=== PATIENT | male | born 1980 | race Caucasian/White ===

== ENCOUNTER 2023-11-23 12:35 | Observation (INO) ==
[2023-11-23 14:12] LABS: ABS Nucleated RBC 0.01 10^3/ul; Hematocrit 25.6 % (38-53); Hemoglobin 7.7 g/dL (13.2-16.3); Mean Corpuscular Hemoglobin 17.5 pg (27-33); Mean Corpuscular Hgb Conc 30.2 g/dL (31-36); Nucleated Red Blood Cells % 0.1 %/100WBC (0.0-0.8); Red Blood Count 4.41 10^6/uL (4.06-5.63); Red Cell Distribution Width 30.6 % (12-17); White Blood Count 5.6 10^3/uL (3.6-10.2)
[2023-11-23 14:25] LABS: ALT 8 U/L (7-52); AST 13 U/L (13-39); Albumin 3.9 g/dL (3.2-5.2); Albumin/Globulin Ratio 1.5 (1-3); Alkaline Phosphatase 53 U/L (35-149); Anion Gap 6 mmol/L (2-16); Blood Urea Nitrogen 10 mg/dL (6-24); CO2 Carbon Dioxide 26 mmol/L (22-32); Calcium 9.3 mg/dL (8.6-10.3); Chloride 106 mmol/L (101-111); Globulin 2.6 g/dL (2-4); Glucose 89 mg/dL (70-100); Potassium 3.8 mmol/L (3.5-5.0); Sodium 138 mmol/L (135-145); Total Bilirubin 0.7 mg/dL (0.2-1.0); Total Protein 6.5 g/dL (6.4-8.9)
[2023-11-23 15:29] LABS: Alcohol, S < 13 mg/dL (<13)
[2023-11-23 15:40] LABS: Mean Platelet Volume 8.7 fL (7.5-11.2); Platelet Count 234 10^3/uL (150-450)
[2023-11-23 15:41] LABS: Anisocytosis 3+; Hypochromasia 3+; Microcytosis 3+; Spherocytes 1+
[2023-11-23 15:42] LABS: ABS Eosinophils 0.2 10^3/ul (0.0-0.5); ABS Lymphocytes 0.9 10^3/ul (1.0-4.8); ABS Monocytes 0.4 10^3/ul (0.0-1.1); ABS Neutrophils 4.1 10^3/ul (1.5-7.6)
[2023-11-23] MEDS ORDERED: LORazepam 2 mg VIAL 1 ml IV PUSH PRN (15:54)
[2023-11-23] MEDS ORDERED: Lorazepam PYXIS KEY PRN (15:54)
[2023-11-23] MEDS ORDERED: Ondansetron 4 mg VIAL 2 MG/ML 2 ml VIAL IV PRN ×2 (16:01→16:28)
[2023-11-23 17:24] LABS: Magnesium 2.2 mg/dL (1.9-2.7); Phosphorus 3.6 mg/dL (2.5-5.0)
[2023-11-23] MEDS: Pantoprazole VIAL 40 MG VIAL IV SCH ×2 (17:39→18:12)
[2023-11-23 17:43] LABS: Vitamin B12 158 pg/mL (180-914)
[2023-11-23] MEDS: Multivitamins/Minerals TAB PO SCH (18:12)
[2023-11-23] MEDS: PEG 3000 GI LAVAGE 1 GALLON PO ONE (18:12)
[2023-11-24 07:00] LABS: Hematocrit 22.4 % (38-53); Hemoglobin 6.7 g/dL (13.2-16.3); Mean Corpuscular Hemoglobin 17.5 pg (27-33); Mean Corpuscular Hgb Conc 30.1 g/dL (31-36); Platelet Count 205 10^3/uL (150-450); Red Blood Count 3.87 10^6/uL (4.06-5.63); Red Cell Distribution Width 29.8 % (12-17); White Blood Count 4.2 10^3/uL (3.6-10.2)
[2023-11-24 07:05] LABS: Calcium 8.7 mg/dL (8.6-10.3); Creatinine, Serum 0.75 mg/dL (0.67-1.17); Potassium 3.6 mmol/L (3.5-5.0); eGFR CKD-EPI 115.5 (>60)
[2023-11-24 08:21] LABS: ABS Nucleated RBC 0.01 10^3/ul; Acanthocytes 1+; Anisocytosis 2+; Hypochromasia 1+; Microcytosis 2+; Nucleated Red Blood Cells % 0.2 %/100WBC (0.0-0.8); Polychromasia 2+; Target Cells 1+; Tear Drop Cells 1+
[2023-11-24] MEDS ORDERED: Lidocaine 2% PF 5 ML VIAL ONE (14:54)
[2023-11-24] MEDS ORDERED: Ondansetron 4 mg VIAL 2 MG/ML 2 ml VIAL IV PRN (14:57)
[2023-11-24] MEDS ORDERED: Naloxone 0.4 mg VIAL 0.4 mg/ml 1 ml VIAL IV PRN (14:57)
[2023-11-24] MEDS ORDERED: Propofol 10 MG/ML 20 ML BTL ONE (15:31)
[2023-11-24] MEDS: Iron Sucrose 200 MG in NS 0.9% 100 ml BAG 100 ML IVPB SCH (17:18)
[2023-11-24 18:14] LABS: Hematocrit 27.2 % (38-53); Hemoglobin 8.3 g/dL (13.2-16.3)
[2023-11-24 18:56] LABS: Mean Corpuscular Hemoglobin 18.6 pg (27-33); Mean Corpuscular Hgb Conc 30.6 g/dL (31-36); Mean Corpuscular Volume 60.7 fL (80-97); Mean Platelet Volume 8.9 fL (7.5-11.2); Platelet Count 220 10^3/uL (150-450); Red Blood Count 4.48 10^6/uL (4.06-5.63); Red Cell Distribution Width 32.5 % (12-17); White Blood Count 5.2 10^3/uL (3.6-10.2)
[2023-11-24] MEDS ORDERED: LORazepam 2 mg VIAL 1 ml IV PUSH PRN (20:47)
[2023-11-24] MEDS ORDERED: Lorazepam PYXIS KEY PRN (20:47)
[2023-11-24] MEDS: Lactated Ringers 1000 ml BAG 1,000 ML IV ONE (22:40)
[2023-11-25 08:45] LABS: Carcinoembryonic Antigen 1.2 ng/mL (0.1-5.0)
[2023-11-25 09:47] LABS: Hematocrit 25.8 % (38-53); Mean Corpuscular Hemoglobin 18.7 pg (27-33); Mean Corpuscular Hgb Conc 30.9 g/dL (31-36); Mean Corpuscular Volume 60.5 fL (80-97); Mean Platelet Volume 8.7 fL (7.5-11.2); Platelet Count 201 10^3/uL (150-450); Red Blood Count 4.27 10^6/uL (4.06-5.63); Red Cell Distribution Width 32.1 % (12-17); White Blood Count 6.6 10^3/uL (3.6-10.2)
[2023-11-25] MEDS: Midazolam 10 mg/10 ml VIAL 1 mg/ml 10 ml VIAL (10 mg) IV SLOW PU ONE (10:44)
[2023-11-25] MEDS: fentaNYL 100 mcg/2 ml 50 MCG/ML VIAL IV SLOW PU ONE (10:44)
[2023-11-25 11:02] LABS: Calcium 9.1 mg/dL (8.6-10.3); Creatinine, Serum 0.81 mg/dL (0.67-1.17); Magnesium 2.1 mg/dL (1.9-2.7); Phosphorus 4.5 mg/dL (2.5-5.0); Potassium 4.5 mmol/L (3.5-5.0); eGFR CKD-EPI 112.9 (>60)
[2023-11-25 14:14] VITALS: BP 116/71
[2023-11-25] MEDS: Cyanocobalamin INJ 1,000 MCG/ML VIAL 1 ML VIAL IM ONE (14:47)
== END 2023-11-25 15:00 | disposition home or self-care (01) ==
LOC: EDHOLD 12:35 → ED 12:35 → MEDTELE 15:44
PROVIDERS: ADMIT Internal Medicine; ATTEND Internal Medicine

== ENCOUNTER 2024-01-01 05:51 | Inpatient (IN) ==
[~2024-01-01 05:51] MED LIST: Ertapenem 1 GM in NS 0.9% 50 ML BAG IVPB SCH; Metoclopramide 5 MG/ML VIAL (10 mg) IV PRN; Naloxone 0.4 mg VIAL 0.4 mg/ml 1 ml VIAL IV PRN; Ondansetron 4 mg VIAL 2 MG/ML 2 ml VIAL IV PRN
[2024-01-01] MEDS ORDERED: Scopolamine 1 mg/72hr PATCH ONE (06:36)
[2024-01-01] MEDS ORDERED: Heparin 5000 UNITS/ML 1 mL VIAL ONE (06:36)
[2024-01-01 06:37] LABS: Rapid COVID-19 Molecular Undetected (Undetected)
[2024-01-01] MEDS ORDERED: Lidocaine 2% PF 5 ML VIAL ONE (06:56)
[2024-01-01] MEDS ORDERED: Desflurane 240 ML INH ONE (06:56)
[2024-01-01] MEDS ORDERED: Propofol 10 MG/ML 20 ML BTL ONE (06:56)
[2024-01-01] MEDS ORDERED: Midazolam 2 mg/2 ml VIAL 1 mg/ml 2 ml VIAL (2 mg) ONE (06:57)
[2024-01-01] MEDS ORDERED: fentaNYL 250 mcg/5 ml 50 MCG/ML 5 ml VIAL (250 MCG) ONE (06:57)
[2024-01-01] MEDS ORDERED: Succinylcholine 200 mg VIAL 20 mg/ml 10 ml VIAL (200 mg) ONE (06:57)
[2024-01-01] MEDS ORDERED: Rocuronium 50 mg VIAL 10 mg/ml 5 ml VIAL (50 mg) ONE ×2 (06:57→08:54)
[2024-01-01] MEDS: Lactated Ringers 1000 ml BAG 1,000 ML IV SCH (07:06)
[2024-01-01] MEDS: Buffered Lidocaine 1% SYRIN 1 ml INTRADERM ONE (07:06)
[2024-01-01] MEDS: Scopolamine 1 mg/72hr PATCH TRANSDERM ONE (07:06)
[2024-01-01] MEDS ORDERED: Bupivacaine 0.25% EPI 200,000 30 ML SDV ONE (07:10)
[2024-01-01 08:09] LABS: Hematocrit 25.1 % (38-53); Hemoglobin 8.1 g/dL (13.2-16.3); Mean Corpuscular Hemoglobin 22.7 pg (27-33); Mean Corpuscular Hgb Conc 32.2 g/dL (31-36); Mean Corpuscular Volume 70.4 fL (80-97); Mean Platelet Volume 8.5 fL (7.5-11.2); Platelet Count 232 10^3/uL (150-450); Red Blood Count 3.57 10^6/uL (4.06-5.63); Red Cell Distribution Width 28.3 % (12-17); White Blood Count 5.1 10^3/uL (3.6-10.2)
[2024-01-01 08:50] LABS: ABS Basophils 0.1 10^3/uL (0.0-0.1); ABS Eosinophils 0.3 10^3/uL (0.0-0.5); ABS Lymphocytes 0.9 10^3/uL (1.0-4.8); ABS Monocytes 0.6 10^3/uL (0.0-1.1); ABS Neutrophils 3.3 10^3/uL (1.5-7.6); ABS Nucleated RBC 0.01 10^3/ul; Anisocytosis 2+; Eosinophil % 5.8 %; Lymphocyte % 17.5 %; Microcytosis 2+; Nucleated Red Blood Cells % 0.1 %/100WBC (0.0-0.8); Schistocytes 1+
[2024-01-01] MEDS ORDERED: Dexmedetomidine 200 mcg/2 ml 2 ml VIAL (200 mcg) ONE (09:32)
[2024-01-01] MEDS ORDERED: fentaNYL 100 mcg/2 ml 50 MCG/ML VIAL IV PRN (10:49)
[2024-01-01] MEDS ORDERED: Naloxone 0.4 mg VIAL 0.4 mg/ml 1 ml VIAL IV PRN (10:49)
[2024-01-01] MEDS ORDERED: Metoclopramide 5 MG/ML VIAL (10 mg) IV PRN (10:49)
[2024-01-01] MEDS ORDERED: Ondansetron 4 mg VIAL 2 MG/ML 2 ml VIAL ONE (12:08)
[2024-01-01] MEDS: Ondansetron 4 mg VIAL 2 MG/ML 2 ml VIAL IV PRN (12:11)
[2024-01-01] MEDS ORDERED: fentaNYL 100 mcg/2 ml 50 MCG/ML VIAL ONE (12:15)
[2024-01-01] MEDS: fentaNYL 100 mcg/2 ml 50 MCG/ML VIAL IV PRN (12:16)
[2024-01-01] MEDS ORDERED: Ondansetron 4 mg VIAL 2 MG/ML 2 ml VIAL IV PRN (12:52)
[2024-01-01] MEDS ORDERED: HYDROmorphone 0.5 MG/0.5 ML SYRINGE IV SLOW PU PRN (12:52)
[2024-01-01] MEDS: Ertapenem 1 GM in NS 0.9% 50 ML IVPB ONE (13:23)
[2024-01-01] MEDS: Pantoprazole VIAL 40 MG VIAL IV SCH (13:35)
[2024-01-01] MEDS: Acetaminophen IV 1 GM/100ML 1,000 MG/100 ML BAG IV SCH (13:36)
[2024-01-02 06:32] LABS: Anion Gap 9 mmol/L (2-16); Blood Urea Nitrogen 9 mg/dL (6-24); CO2 Carbon Dioxide 28 mmol/L (22-32); Calcium 8.7 mg/dL (8.6-10.3); Chloride 102 mmol/L (101-111); Creatinine, Serum 0.77 mg/dL (0.67-1.17); Glucose 112 mg/dL (70-100); Potassium 4.6 mmol/L (3.5-5.0); Sodium 139 mmol/L (135-145); eGFR CKD-EPI 113.9 (>60)
[2024-01-02 08:09] LABS: ABS Lymphocytes 0.7 10^3/uL (1.0-4.8); ABS Monocytes 1.4 10^3/uL (0.0-1.1); ABS Neutrophils 7.6 10^3/uL (1.5-7.6); ABS Nucleated RBC 0.01 10^3/ul; Eosinophil % 0.1 %; Hematocrit 23.3 % (38-53); Hemoglobin 7.6 g/dL (13.2-16.3); Lymphocyte % 7.3 %; Mean Corpuscular Hemoglobin 22.7 pg (27-33); Mean Corpuscular Hgb Conc 32.6 g/dL (31-36); Mean Corpuscular Volume 69.6 fL (80-97); Mean Platelet Volume 9.1 fL (7.5-11.2); Nucleated Red Blood Cells % 0.1 %/100WBC (0.0-0.8); Platelet Count 250 10^3/uL (150-450); Red Blood Count 3.34 10^6/uL (4.06-5.63); Red Cell Distribution Width 27.7 % (12-17); White Blood Count 9.8 10^3/uL (3.6-10.2)
[2024-01-02 08:15] LABS: Anisocytosis 3+; Macrocytosis 1+; Microcytosis 1+; Polychromasia 1+
[2024-01-02] MEDS: Enoxaparin 40 MG/0.4 ML SYR SUBCUT SCH (08:55)
[2024-01-02 10:46] LABS: % Iron Saturation 5 % (15-55); .Transferrin 272 mg/dL (203-362); Iron < 20 ug/dL (50-212); Total Iron Binding Capacity 381 mcg/dL (250-450); Unsaturated Iron Binding 361 ug/dL
[2024-01-02 11:02] LABS: Ferritin 13.9 ng/mL (24-336)
[2024-01-02 11:06] LABS: Vitamin B12 223 pg/mL (180-914)
[2024-01-03 06:38] VITALS: BP 110/65
== END 2024-01-03 10:00 | disposition home or self-care (01) | DRG 221 ==
LOC: AA 05:51 → SSU 13:11
PROVIDERS: ADMIT Surgery; ATTEND Surgery